=== PATIENT | female | born 2000 | race Caucasian/White ===

== ENCOUNTER 2020-03-13 22:23 | Emergency (ER) | payer BC, OTHER ==
[~2020-03-13] VITALS: Ht 160 cm; Wt 55.5 kg
--- NOTE | 2020-03-13 22:38 | ED GU-Female ---
General Chief Complaint: Female Reproductive Stated Complaint: VAGINAL BLEEDING Source: patient, RN/MD, RN notes reviewed, old records Exam Limitations: no limitations History of Present Illness Date Seen by Provider: Mar 13, 2020 Time Seen by Provider: 22:25 Initial Comments This patient is a 19-year-old female that is a at approximately 8 weeks presents to the emerge from her vaginal bleeding cramping that started one day ago. Patient states she believes she might be having a miscarriage. Patient states she did have an ultrasound on February 16 and stated that she had a positive but had no heartbeat. Patient states very little cramping at this time and has been passing tissues. The patient understands that we do not have ultrasound available. We'll do medical evaluation treatment is needed. Timing/Duration: yesterday Severity/Quality: moderate Activities at Onset: none Allergies and Home Medications Patient Home Medication List Home Medication List Reviewed: Yes Review of Systems Review of Systems Constitutional: No no symptoms reported; see HPI; No chills, No diaphoresis, No dizziness, No fever, No malaise, No weakness, No weight gain, No weight loss, No other EENTM: No see HPI, No no symptoms reported, No ear discharge, No hearing loss, No ear pain, No blurred vision, No double vision, No eye pain, No tearing, No vision loss, No dental problems, No hoarseness, No mouth pain, No mouth swelling, No epistaxis, No nose congestion, No nose pain, No throat pain, No throat swelling, No other Respiratory: No no symptoms reported, No see HPI, No cough, No dyspnea on exertion, No hemoptysis, No orthopnea, No phlegm, No short of breath, No stridor, No wheezing, No other Cardiovascular: No no symptoms reported, No see HPI, No chest pain, No edema, No Hx of Intervention, No palpitations, No syncope, No vascular heart diseas, No other Gastrointestinal: No RUQ, No LUQ, No RLQ, No LLQ, No no symptoms reported, No see HPI, No abdominal pain, No constipation, No diarrhea, No dysphagia, No hematemesis, No heartburn, No jaundice, No loss of appetite, No melena, No nausea, No vomiting, No other Genitourinary: see HPI, other : Yes LMP: Dec 14, 2019 All Other Systemes Reviewed Negative Unless Noted: Yes Past Gndnfqy-Dphwvx-Hiomhl Hx Patient Social History Recent Foreign Travel: No Contact w/Someone Who Travel: No Physical Exam Vital Signs Vital Signs - First Documented 03/13/20 22:30 Temp 38.0 Pulse 115 Resp 16 B/P (MAP) 133/87 (102) Pulse Ox 99 O2 Delivery Room Air Capillary Refill : Height, Weight, BMI Height: '" Weight: lbs. oz. kg; BMI Method: General Appearance: WD/WN, no apparent distress Cardiovascular: normal peripheral pulses, regular rate, rhythm, no edema, no gallop, no JVD, no murmur Respiratory: chest non-tender, lungs clear, normal breath sounds, no respiratory distress, no accessory muscle use, respiratory distress Gastrointestinal: normal bowel sounds, non tender, soft, no organomegaly, no pulsatile mass, abnormal bowel sounds Genital/Rectal: other (deferred) Pelvic: other (deferred) Skin: normal color, warm/dry, pallor Progress/Results/Core Measures Suspected Sepsis SIRS Temperature: Pulse: Respiratory Rate: Laboratory Tests 03/13/20 22:40: White Blood Count 13.3H Blood Pressure / Mean: Laboratory Tests 03/13/20 22:40: INR Comment 1.0, Platelet Count 239 Results/Orders Lab Results Laboratory Tests Test 03/13/20 22:40 03/13/20 23:10 Range/Units White Blood Count 13.3 H 4.3-11.0 10^3/uL Red Blood Count 4.88 4.35-5.85 10^6/uL Hemoglobin 14.0 11.5-16.0 G/DL Hematocrit 40 35-52 % Mean Corpuscular Volume 82 80-99 FL Mean Corpuscular Hemoglobin 29 25-34 PG Mean Corpuscular Hemoglobin Concent 35 32-36 G/DL Red Cell Distribution Width 13.6 10.0-14.5 % Platelet Count 239 130-400 10^3/uL Mean Platelet Volume 10.6 H 7.4-10.4 FL Immature Granulocyte % (Auto) 0 % Neutrophils (%) (Auto) 75 42-75 % Lymphocytes (%) (Auto) 20 12-44 % Monocytes (%) (Auto) 4 0-12 % Eosinophils (%) (Auto) 0 0-10 % Basophils (%) (Auto) 0 0-10 % Neutrophils # (Auto) 9.9 H 1.8-7.8 X 10^3 Lymphocytes # (Auto) 2.7 1.0-4.0 X 10^3 Monocytes # (Auto) 0.6 0.0-1.0 X 10^3 Eosinophils # (Auto) 0.0 0.0-0.3 10^3/uL Basophils # (Auto) 0.0 0.0-0.1 10^3/uL Immature Granulocyte # (Auto) 0.0 0.0-0.1 10^3/uL Prothrombin Time 13.4 12.2-14.7 SEC INR Comment 1.0 0.8-1.4 Sodium Level 137 135-145 MMOL/L Potassium Level 3.7 3.6-5.0 MMOL/L Chloride Level 106 98-107 MMOL/L Carbon Dioxide Level 20 L 21-32 MMOL/L Anion Gap 11 5-14 MMOL/L Blood Urea Nitrogen 7 7-18 MG/DL Creatinine 0.69 0.60-1.30 MG/DL Estimat Glomerular Filtration Rate > 60 BUN/Creatinine Ratio 10 Glucose Level 102 70-105 MG/DL Calcium Level 9.2 8.5-10.1 MG/DL Human Chorionic Gonadotropin, Quant 42003 H <5 MIU/ML Urine Color OTHER H Urine Clarity CLOUDY H Urine pH 6.0 5-9 Urine Specific [place] >=1.030 1.016-1.022 Urine Protein NEGATIVE NEGATIVE Urine Glucose (UA) NEGATIVE NEGATIVE Urine Ketones TRACE H NEGATIVE Urine Nitrite NEGATIVE NEGATIVE Urine Bilirubin NEGATIVE NEGATIVE Urine Urobilinogen 0.2 < = 1.0 MG/DL Urine Leukocyte Esterase NEGATIVE NEGATIVE Urine RBC (Auto) 3+ H NEGATIVE Urine RBC >100 H /HPF Urine WBC 0-2 /HPF Urine Squamous Epithelial Cells 0-2 /HPF Urine Crystals NONE /LPF Urine Bacteria NEGATIVE /HPF Urine Casts NONE /LPF Urine Mucus SMALL H /LPF Urine Culture Indicated NO My Orders Orders - LUIS M KRUEGER MD Basic Metabolic Panel (03/13/20 22:33) Cbc With Automated Diff (03/13/20 22:33) Protime With Inr (03/13/20 22:33) Hcg,Quantitative (03/13/20 22:33) Urinalysis (03/13/20 22:33) Abo Rh Type (10/20/20 22:33) Vital Signs/I&O 03/13/20 22:30 Temp 38.0 Pulse 115 Resp 16 B/P (MAP) 133/87 (102) Pulse Ox 99 O2 Delivery Room Air Capillary Refill : Progress Note : Time: 23:35 Progress Note Medical records from patient's blood type is A+. Patient significant bleeding and pelvic cramping and passing tissue concerning for possible miscarriage. No ultrasound available at this facility. Patient was offered transfer for ultrasound possible. Patient states understanding of declines. Patient will monitor bleeding closely at home follow up with [facility] as instructed. Patient is to return to the emergency department if symptoms worsen. Patient is also recommended to follow-up with either [facility] Dr. Szymanski or in [place]. For ultrasound. Patient states understanding she is discharged home per her request Departure Impression Primary Impression: Spontaneous miscarriage Disposition: 01 HOME, SELF-CARE Condition: Stable Departure-Patient Inst. Decision time for Depature: 23:37 Referrals: NO,LOCAL PHYSICIAN (PCP) Primary Care Physician LYNETTE ANGELA DO Patient Instructions: Miscarriage (DC) Add. Discharge Instructions: Monitor blood loss and number pads daily. Make an appointment with Dr. Szymanski [facility] for outpatient evaluation. Return to the emergency department immediately if symptoms failed to improve or worsen or follow-up with [facility] or [facility] for possible ultrasound. All discharge instructions reviewed with patient and/or family. Voiced understanding. LUIS M KRUEGER MD Mar 13, 2020 22:38
[2020-03-13 22:52] LABS: HEMATOCRIT 40 % (35-52); LYMPHOCYTES % (AUTO) 20 % (12-44); MEAN CORPUSCULAR HEMOGLOBIN 29 PG (25-34); MEAN CORPUSCULAR HGB CONC 35 G/DL (32-36); MEAN CORPUSCULAR VOLUME 82 FL (80-99); MEAN PLATELET VOLUME 10.6 FL (7.4-10.4); NEUTROPHILS % (AUTO) 75 % (42-75); PLATELET COUNT 239 10^3/uL (130-400); WHITE BLOOD COUNT 13.3 10^3/uL (4.3-11.0)
[2020-03-13 22:53] LABS: BASOPHILS % (AUTO) 0 % (0-10); EOSINOPHILS % (AUTO) 0 % (0-10); LYMPHOCYTES # (AUTO) 2.7 X 10^3 (1.0-4.0); MONOCYTES # (AUTO) 0.6 X 10^3 (0.0-1.0); MONOCYTES % (AUTO) 4 % (0-12); NEUTROPHILS # (AUTO) 9.9 X 10^3 (1.8-7.8)
--- NOTE | 2020-03-13 22:58 | NUR ---
Noted patient to be A+ blood type through [facility] records.
[2020-03-13 23:05] LABS: PROTHROMBIN TIME PATIENT 13.4 SEC (12.2-14.7)
[2020-03-13 23:18] LABS: BUN/CREATININE RATIO 10; CARBON DIOXIDE 20 MMOL/L (21-32); CHLORIDE 106 MMOL/L (98-107); CREATININE SERUM 0.69 MG/DL (0.60-1.30); GFR ESTIMATED > 60; POTASSIUM 3.7 MMOL/L (3.6-5.0); SODIUM 137 MMOL/L (135-145)
[2020-03-13 23:19] LABS: CALCIUM 9.2 MG/DL (8.5-10.1); GLUCOSE 102 MG/DL (70-105)
[2020-03-13 23:29] LABS: CLARITY,URINE CLOUDY; COLOR,URINE OTHER
[2020-03-13 23:30] LABS: BACTERIA,URINE NEGATIVE /HPF; BILIRUBIN,URINE NEGATIVE (NEGATIVE); GLUCOSE, URINE (UA) NEGATIVE (NEGATIVE); KETONES,URINE TRACE (NEGATIVE); LEUKOCYTE ESTERASE ,URINE NEGATIVE (NEGATIVE); NITRITE,URINE NEGATIVE (NEGATIVE); PROTEIN,URINE NEGATIVE (NEGATIVE); RBC,URINE >100 /HPF; SQUAMOUS EPITHELIAL CELL,UR 0-2 /HPF; WBC,URINE 0-2 /HPF
[2020-03-13] MEDS ORDERED: NS IV 1000 ML 1,000 ML IV STA (23:41)
[2020-03-14 00:26] VITALS: BP 108/74
== END 2020-03-14 00:26 | disposition home or self-care (01) ==
LOC: ER FS 22:25
DX: O03.9 Complete or unspecified spontaneous abortion without complication (principal)
CPT/HCPCS: 36415; 80048; 81000; 84702; 85025; 85610

== ENCOUNTER → 2020-10-08 | Outpatient (CLI) | payer BC | LOC: LAB FS 09:32 | PROVIDERS: ATTEND Nurse Practitioner Family | DX: Z32.01 Encounter for pregnancy test, result positive (principal) | CPT/HCPCS: 36415; 84702 ==

== ENCOUNTER → 2021-01-24 | Outpatient (CLI) | payer BC ==
--- NOTE | 2021-01-24 10:15 | Diagnostic Imaging Report ---
INDICATION: survey. TECHNIQUE: Multiple real-time grayscale images were obtained over the gravid uterus. COMPARISON: None FINDINGS: There is a single live fetus in a breech presentation. heart rate was recorded at 153 bpm. Placenta is anterior. Amniotic fluid volume is normal. Cervical length is 4.4 cm. survey shows kidneys, bladder and stomach to be unremarkable. brain is unremarkable. There is a four-chamber heart. There is a three-vessel cord with normal insertion. The spine is unremarkable. Biometrical measurements are as follows: Biparietal 4.42 cm, age 19 weeks 3 days. Head circumference 16.57 cm, age 19 weeks 2 days. Abdominal circumference 15.24 cm, age 20 weeks 4 days. Femur length 2.96 cm, age 19 weeks 4 days. Sonographic estimate age: 19 weeks 5 days. Sonographic estimated date of delivery: 06/15/2021. Estimated Weight: 312 gm (+/- 46 gm). LMP percentile: 87%. heart rate: 153 beats per minute. number: 1 of 1. IMPRESSION: Single live IUP at 19 weeks 5 days gestational age. Estimated date of confinement sonographically is 06/15/2021. Dictated by: Dictated on workstation # [id number]
== END ==
LOC: RAD FS 09:04
PROVIDERS: ATTEND Obstetrics & Gynecology
DX: Z36.9 Encounter for antenatal screening, unspecified (principal); Z3A.19 19 weeks gestation of pregnancy
CPT/HCPCS: 76805